=== PATIENT | male | born 1980 | race Caucasian/White ===

== ENCOUNTER 2016-11-04 16:26 | Emergency (ER) | payer MEDICAID ==
[~2016-11-04] VITALS: Ht 165.1 cm; Wt 135.0 kg
[~2016-11-04 16:26] MED LIST: AMLO5TAB2 PO; CLON0.1T PO; GABA800T PO; HYDR-3366 PO; NABU1TAB33 PO; PRED20 PO; TIZA4TAB PO
[2016-11-04 16:28] VITALS: BP 179/107; PULSE 86; RESP 15; TEMP 98.4; O2SAT 98
[2016-11-04] MEDS ORDERED: DEXAMETHASONE SOD PHOS 20 MG/5 ML VIAL IM ONE (19:00)
[2016-11-04] MEDS ORDERED: ACYC800T PO (19:04)
[2016-11-04] MEDS ORDERED: AMOX500T PO (19:04)
[2016-11-04] MEDS ORDERED: PERI0.126 SWISH-SPIT (19:04)
[2016-11-04] MEDS ORDERED: MAGICADU2 SWISH-SWAL (19:04)
--- NOTE | 2016-11-04 19:04 | PD ---
HPI Chief Complaint: Oral / Dental Pain or Problem Time Seen by Provider: 18:52 Travel History International Travel<30 days: No Contact w/Intl Traveler<30days: No Traveled to known affect area: No History of Present Illness HPI 36 year male presents to emergency department for evaluation of ulcerative lesions in his oral mucosa on the right side extending to his lip. States that he noticed some tingling and mild burning in his mouth about 3 days ago. He thought maybe he had thrush so he started swishing with hydrogen peroxide but then started with lemon juice after the hydrogen peroxide oh when crazy in his mouth." Denies a trauma. No fever or chills. States that they are painful especially when eating. Is concerned that his lip has become swollen on the right side. Denies difficulty swallowing. No other symptoms to report. PFSH Past Medical History Autoimmune Disease: No Anxiety: Yes Depression: Yes Cardiovascular Problems: Yes (HTN; HASNT TAKEN HIS BP MEDS YET TODAY) Diabetes: No Diminished Hearing: No Hypertension: Yes Schizophrenia: No Seizures: No Past Surgical History Neurologic Surgery: Yes (C 6-7 FUSION) Tonsillectomy: Yes Social History Alcohol Use: No Tobacco Use: Yes Substance Use: No Allergies-Medications (Allergen,Severity, Reaction): Coded Allergies: No Known Allergies (Verified , 12/19/15) Reported Meds & Prescriptions Reported Meds & Active Scripts Active Magic Mouthwash Adult Liq (Multi-Ingredient Mouthwash/Gargle) 120 Ml Susp 10 Ml SWISH-SWAL ACHS Each 5mL contains: Nystatin 200,000units, Diphenhydramine 4.25mg, Viscous Lidocaine 10mg, Norris syrup 0.8 mL Amoxicillin 500 Mg Tab 500 Mg PO TID 10 Days Acyclovir 800 Mg Tab 800 Mg PO 5 TIMES A DAY 7 Days Peridex Liq (Chlorhexidine Gluconate (Mouth) Liq) 0.12% Soln 15 Ml SWISH-SPIT BID 14 Days Prednisone 20 Mg Tab 20 Mg PO BID 3 Days Clonidine (Clonidine HCl) 0.1 Mg Tab 0.1 Mg PO BID PRN Reported Tizanidine (Tizanidine HCl) 4 Mg Tab 4 Mg PO TID Nabumetone 750 Mg Tab 1,500 Mg PO DAILY [place] (Hydrocodone-Acetaminophen) 10-325 Mg Tab 1 Tab PO Q6H PRN Gabapentin 800 Mg Tab 800 Mg PO TID Amlodipine (Amlodipine Besylate) 5 Mg Tab 5 Mg PO DAILY Review of Systems Except as stated in HPI: all other systems reviewed are Neg Physical Exam Narrative GENERAL: Well-nourished, well-developed male patient, no acute distress SKIN: Focused skin assessment warm/dry. HEAD: Normocephalic. EARS: Bilateral pinnae and external canals appear within normal limits. Bilateral tympanic membranes without erythema, dullness or perforation. EYES: No scleral icterus. No injection or drainage. ENT: Mucosa pink and moist there is erythema along the right mucosa with ulcerative lesions on the anterior inferior lip with mild associated edema. No uvular edema. No uvular, palatal, or tonsillar deviation. Airway patent. Nasal turbinates appear normal without nasal blood, purulent drainage or septal hematoma. NECK: Supple, trachea midline. No JVD or lymphadenopathy. CARDIOVASCULAR: Regular rate and rhythm without murmurs, gallops, or rubs. RESPIRATORY: Breath sounds equal bilaterally. No accessory muscle use. GASTROINTESTINAL: Abdomen soft, non-tender, nondistended. MUSCULOSKELETAL: No cyanosis, or edema. BACK: Nontender without obvious deformity. No CVA tenderness. Data Data Last Documented VS Vital Signs Date Time Temp Pulse Resp B/P (MAP) Pulse Ox O2 Delivery O2 Flow Rate FiO2 11/04/16 16:28 98.4 86 15 179/107 (131) 98 Orders Orders Dexamethasone Inj (Decadron Inj) (11/04/16 19:00) MDM Medical Decision Making Medical Screen Exam Complete: Yes Emergency Medical Condition: Yes Medical Record Reviewed: Yes Differential Diagnosis aCANTHOUS versus oral herpes versus shingles versus mucositis Narrative Course 36-year-old male presents to emergency department for evaluation. Patient does have ulcerative lesions along the right side of his mouth mostly in the buccal space and lower lip. Patient will be started on Peridex oral rinse as well as Magic mouthwash. He'll be given an antiviral as well as an antibiotic. He is encouraged to seek follow-up with a primary care provider and return immediately with any acute worsening of symptoms. Diagnosis Primary Impression: Oral mucositis (ulcerative), unspecified Referrals: Dentist Primary Care Physician Patient Instructions: General Instructions, Oral Mucositis (ED) Additional Instructions: Avoid abrasive and acidic foods Follow-up with a primary care provider Seek dental evaluation Return immediately to the emergency department with any acute worsening of symptoms Med/Other Pt SpecificInfo: Prescription(s) given Scripts Vpegkrbx-Fquyjcfsthegyrj-Rqfhkqzxp Liq (Magic Mouthwash Adult Liq) 120 Ml Susp 10 ML SWISH-SWAL ACHS for Mouth sores, #120 ML 0 Refills Each 5mL contains: Nystatin 200,000units, Diphenhydramine 4.25mg, Viscous Lidocaine 10mg, Norris syrup 0.8 mL Prov: Koki Sanchez 11/04/16 Amoxicillin (Amoxicillin) 500 Mg Tab 500 MG PO TID for Infection for 10 Days, TAB 0 Refills Prov: Koki Sanchez 11/04/16 Acyclovir (Acyclovir) 800 Mg Tab 800 MG PO 5 TIMES A DAY for Mgmt Viral Infection for 7 Days, TAB 0 Refills Prov: Koki Sanchez 11/04/16 Chlorhexidine Gluconate (Mouth) Liq (Peridex Liq) 0.12% Soln 15 ML SWISH-SPIT BID for 14 Days, #420 ML 0 Refills Prov: Koki Sanchez 11/04/16 Disposition: 01 DISCHARGE HOME Condition: Stable Koki Sanchez Nov 04, 2016 19:04
== END 2016-11-04 19:16 | disposition home or self-care (01) ==
LOC: NEPD 16:26
DX: K12.30 Oral mucositis (ulcerative), unspecified (principal); I10 Essential (primary) hypertension; Z72.0 Tobacco use
CPT/HCPCS: 96372; 99284; J1100

== ENCOUNTER 2016-11-19 16:39 | Observation (INO) | payer MEDICAID ==
[~2016-11-19] VITALS: Ht 165.1 cm; Wt 141.0 kg
[~2016-11-19 16:39] MED LIST changes: +ACYC800T PO; +AMOX500T PO; +MAGICADU2 SWISH-SWAL; +PERI0.126 SWISH-SPIT
[2016-11-19 16:47] VITALS: BP 183/111; PULSE 90; RESP 13; TEMP 97.7; O2SAT 97
--- NOTE | 2016-11-19 16:49 | PD ---
Physical Exam Time Seen by Provider: 16:48 Narrative Pt has history of L5S1 herniation and is on chronic pain medication with Lortab and gabapentin. Has been out of his meds for 48 hours. Feels very sick and began having right sided chest pain that does not radiate anywhere. Feels anxious and dizzy and states he is "not doing very well." Data Data Last Documented VS Vital Signs Date Time Temp Pulse Resp B/P (MAP) Pulse Ox O2 Delivery O2 Flow Rate FiO2 11/19/16 17:18 98.3 82 18 161/89 (113) 99 Room Air Orders Orders Electrocardiogram (11/19/16 16:50) Basic Metabolic Panel (Bmp) (11/19/16 16:50) Ckmb (Isoenzyme) Profile (11/19/16 16:50) Complete Blood Count With Diff (11/19/16 16:50) Magnesium (Mg) (11/19/16 16:50) Prothrombin Time / Inr (Pt) (11/19/16 16:50) Act Partial Throm Time (Ptt) (11/19/16 16:50) Troponin I (11/19/16 16:50) Drug Screen, Random Urine (11/19/16 16:50) Chest, Pa & Lat (11/19/16 16:50) Admit Order (Ed Use Only) (11/19/16 19:03) Activity Bed Rest With Brp (11/19/16 19:03) Vital Signs (Adult) Q4H (11/19/16 19:03) Cardiac Rhythm .As Directed (11/19/16 19:03) Notify Dr: Other .PRN (11/19/16 19:03) Notify Parameters (11/19/16 19:03) Resp Oxygen Nasal Cannula (11/19/16 ) Ckmb (Isoenzyme) Profile (11/19/16 19:03) Ckmb (Isoenzyme) Profile (11/19/16 22:03) Troponin I (11/19/16 19:03) Troponin I (11/19/16 22:03) Electrocardiogram (11/19/16 19:03) Electrocardiogram (11/19/16 22:03) ^ Obtain (11/19/16 19:03) Sodium Chloride 0.9% Flush (Ns Flush) (11/19/16 19:15) Sodium Chloride 0.9% Flush (Ns Flush) (11/19/16 21:00) Acetamin-Hydrocod 325-7.5 Mg ([place] 7.5 (11/19/16 19:15) Aspirin (Aspirin) (11/20/16 09:00) Drugless Doctor / Telemetry [place].Q8H (11/19/16 19:03) Labs Laboratory Tests Test 11/19/16 16:40 11/19/16 17:30 Urine Opiates Screen NEG Urine Barbiturates Screen NEG Urine Amphetamines Screen NEG Urine Benzodiazepines Screen NEG Urine Cocaine Screen NEG Urine Cannabinoids Screen NEG White Blood Count 11.2 TH/MM3 Red Blood Count 5.46 MIL/MM3 Hemoglobin 16.3 GM/DL Hematocrit 47.4 % Mean Corpuscular Volume 86.7 FL Mean Corpuscular Hemoglobin 29.9 PG Mean Corpuscular Hemoglobin Concent 34.4 % Red Cell Distribution Width 14.0 % Platelet Count 269 TH/MM3 Mean Platelet Volume 8.3 FL Neutrophils (%) (Auto) 72.6 % Lymphocytes (%) (Auto) 20.8 % Monocytes (%) (Auto) 5.7 % Eosinophils (%) (Auto) 0.5 % Basophils (%) (Auto) 0.4 % Neutrophils # (Auto) 8.1 TH/MM3 Lymphocytes # (Auto) 2.3 TH/MM3 Monocytes # (Auto) 0.6 TH/MM3 Eosinophils # (Auto) 0.1 TH/MM3 Basophils # (Auto) 0.0 TH/MM3 CBC Comment AUTO DIFF Differential Comment AUTO DIFF CONFIRMED Platelet Estimate NORMAL Platelet Morphology Comment NORMAL Red Cell Morphology Comment NORMAL Prothrombin Time 10.7 SEC Prothromb Time International Ratio 1.0 RATIO Activated Partial Thromboplast Time 26.6 SEC Blood Urea Nitrogen 7 MG/DL Creatinine 0.79 MG/DL Random Glucose 115 MG/DL Calcium Level 9.2 MG/DL Magnesium Level 2.3 MG/DL Sodium Level 141 MEQ/L Potassium Level 3.8 MEQ/L Chloride Level 109 MEQ/L Carbon Dioxide Level 24.9 MEQ/L Anion Gap 7 MEQ/L Estimat Glomerular Filtration Rate 111 ML/MIN Total Creatine Kinase 59 U/L Troponin I LESS THAN 0.02 NG/ML [facility] Medical Record Reviewed: Yes Supervised Visit with SUSANNAH: No Condition: Stable Koki Sanchez Nov 19, 2016 16:49
[2016-11-19 17:11] VITALS: BP 161/89; PULSE 81; RESP 18; TEMP 98.3
[2016-11-19 17:18] VITALS: BP 161/89; PULSE 82; RESP 18; TEMP 98.3; O2SAT 99
--- NOTE | 2016-11-19 17:22 | RADRPT ---
EXAM DATE/TIME: 11/19/2016 17:12 [place] COMPARISON: No previous studies available for comparison. INDICATIONS : Chest pain. MEDICAL HISTORY : None. SURGICAL HISTORY : None. ENCOUNTER: Initial ACUITY: 1 day PAIN SCORE: 6/10 LOCATION: Bilateral chest FINDINGS: PA and lateral views of the chest demonstrate the lungs to be symmetrically aerated without evidence of mass, infiltrate or effusion. The cardiomediastinal contours are unremarkable. Lower cervical fix ation hardware. Osseous structures are intact. CONCLUSION: 1. No acute cardiopulmonary disease. Colt Sanford MD on November 19, 2016 at 17:20 Board Certified Radiologist. This report was verified electronically.
[2016-11-19 18:00] LABS: AUTOMATED NEUTROPHIL # 8.1 TH/MM3 (1.8-7.7); BASOPHIL % 0.4 % (0.0-2.0); EOSINOPHIL # 0.1 TH/MM3 (0-0.4); EOSINOPHIL % 0.5 % (0.0-4.0); HEMATOCRIT 47.4 % (39.0-51.0); LYMPH % 20.8 % (9.0-44.0); LYMPHOCYTE # 2.3 TH/MM3 (1.0-4.8); MEAN CELL VOLUME 86.7 FL (80.0-100.0); MEAN CORPUSCULAR HEMOGLOBIN 29.9 PG (27.0-34.0); MEAN CORPUSCULAR HGB CONC 34.4 % (32.0-36.0); MONO % 5.7 % (0.0-8.0); NEUT % 72.6 % (16.0-70.0); PLATELET COUNT 269 TH/MM3 (150-450); RED BLOOD COUNT 5.46 MIL/MM3 (4.50-5.90); WHITE BLOOD COUNT 11.2 TH/MM3 (4.0-11.0)
[2016-11-19 18:11] LABS: APTT (PATIENT) 26.6 SEC (24.3-30.1); PROTHROMBIN TIME - PATIENT 10.7 SEC (9.8-11.6)
[2016-11-19 18:13] LABS: HEMO FLAGS AUTO DIFF
[2016-11-19 18:25] LABS: ANION GAP 7 MEQ/L (5-15); BICARBONATE 24.9 MEQ/L (21.0-32.0); BLOOD UREA NITROGEN 7 MG/DL (7-18); CHLORIDE 109 MEQ/L (98-107); GLOMERULAR FILTRATION RATE 111 ML/MIN (>89); MAGNESIUM 2.3 MG/DL (1.5-2.5); POTASSIUM 3.8 MEQ/L (3.5-5.1); SODIUM (NA) 141 MEQ/L (136-145)
[2016-11-19 18:31] LABS: CREATINE KINASE 59 U/L (39-308)
[2016-11-19 18:48] LABS: PLATELET ESTIMATE SMEAR NORMAL (NORMAL); PLATELET MORPHOLOGY NORMAL (NORMAL); SCAN/DIFF AUTO DIFF CONFIRMED
--- NOTE | 2016-11-19 19:10 | PD ---
HPI Chief Complaint: Chest Pain Time Seen by Provider: 17:13 Travel History International Travel<30 days: No Contact w/Intl Traveler<30days: No Traveled to known affect area: No History of Present Illness HPI 36-year-old male with history of smoking, high cholesterol, chronic hypertension , chronic neck pain, presents to the ER today because he states that he had ran out of his pain medications for 2 days, and has been having one day of substernal chest pains which she currently rates at a 4 out of 10. He has been nauseous, intermittently vomiting. He denies any fevers, shortness of breath, or any other symptoms. He does not know any exacerbating or alleviating factors. Modifying Factors: None Associated Signs & Symptoms: Chest pains Risk Factors: Smoking, hypertension, high cholesterol PFSH Past Medical History Autoimmune Disease: No Anxiety: Yes Depression: Yes Cardiovascular Problems: Yes (HTN) High Cholesterol: Yes Diabetes: No Diminished Hearing: No Hypertension: Yes Schizophrenia: No Seizures: No Tetanus Vaccination: > 5 Years Influenza Vaccination: No Past Surgical History Neurologic Surgery: Yes (C 6-7 FUSION) Tonsillectomy: Yes Social History Alcohol Use: No Tobacco Use: Yes Substance Use: No Allergies-Medications (Allergen,Severity, Reaction): Coded Allergies: No Known Allergies (Verified , 11/19/16) Reported Meds & Prescriptions Reported Meds & Active Scripts Active Reported Nabumetone 750 Mg Tab 1,500 Mg PO DAILY [place] (Hydrocodone-Acetaminophen) 10-325 Mg Tab 1 Tab PO Q6H PRN Gabapentin 800 Mg Tab 800 Mg PO TID Amlodipine (Amlodipine Besylate) 5 Mg Tab 5 Mg PO DAILY Review of Systems Except as stated in HPI: all other systems reviewed are Neg Physical Exam Narrative GENERAL: Well-developed obese young white male patient currently in mild distress. Awake and oriented 3. SKIN: Focused skin assessment warm/dry. HEAD: Atraumatic. Normocephalic. EYES: Pupils equal and round. No scleral icterus. No injection or drainage. ENT: No nasal bleeding or discharge. Mucous membranes pink and moist. NECK: Trachea midline. No JVD. Supple. CARDIOVASCULAR: Regular rate and rhythm. No murmur appreciated. Pulses are present and equal bilaterally. RESPIRATORY: No accessory muscle use. Clear to auscultation. Breath sounds equal bilaterally. GASTROINTESTINAL: Abdomen soft, non-tender, nondistended. Hepatic and splenic margins not palpable. MUSCULOSKELETAL: No obvious deformities. No clubbing. No cyanosis. No edema. NEUROLOGICAL: Awake and alert. No obvious cranial nerve deficits. Motor grossly within normal limits. Normal speech. PSYCHIATRIC: Appropriate mood and affect; insight and judgment normal. Data Data Last Documented VS Vital Signs Date Time Temp Pulse Resp B/P (MAP) Pulse Ox O2 Delivery O2 Flow Rate FiO2 11/19/16 17:18 98.3 82 18 161/89 (113) 99 Room Air Orders Orders Electrocardiogram (11/19/16 16:50) Basic Metabolic Panel (Bmp) (11/19/16 16:50) Ckmb (Isoenzyme) Profile (11/19/16 16:50) Complete Blood Count With Diff (11/19/16 16:50) Magnesium (Mg) (11/19/16 16:50) Prothrombin Time / Inr (Pt) (11/19/16 16:50) Act Partial Throm Time (Ptt) (11/19/16 16:50) Troponin I (11/19/16 16:50) Drug Screen, Random Urine (11/19/16 16:50) Chest, Pa & Lat (11/19/16 16:50) Electrocardiogram (11/19/16 ) Admit Order (Ed Use Only) (11/19/16 19:03) Activity Bed Rest With Brp (11/19/16 19:03) Vital Signs (Adult) Q4H (11/19/16 19:03) Cardiac Rhythm .As Directed (11/19/16 19:03) Notify Dr: Other .PRN (11/19/16 19:03) Notify Parameters (11/19/16 19:03) Resp Oxygen Nasal Cannula (11/19/16 ) Diet Heart Healthy (11/20/16 Breakfast) Ckmb (Isoenzyme) Profile (11/19/16 19:03) Ckmb (Isoenzyme) Profile (11/19/16 22:03) Troponin I (11/19/16 19:03) Troponin I (11/19/16 22:03) Electrocardiogram (11/19/16 19:03) Electrocardiogram (11/19/16 22:03) ^ Obtain (11/19/16 19:03) Sodium Chloride 0.9% Flush (Ns Flush) (10/2/17 19:15) Sodium Chloride 0.9% Flush (Ns Flush) (11/19/16 21:00) Acetamin-Hydrocod 325-7.5 Mg ([place] 7.5 (11/19/16 19:15) Aspirin (Aspirin) (11/20/16 09:00) Landfill Grader / Telemetry [place].Q8H (11/19/16 19:03) Labs Laboratory Tests Test 11/19/16 16:40 11/19/16 17:30 White Blood Count 11.2 TH/MM3 Red Blood Count 5.46 MIL/MM3 Hemoglobin 16.3 GM/DL Hematocrit 47.4 % Mean Corpuscular Volume 86.7 FL Mean Corpuscular Hemoglobin 29.9 PG Mean Corpuscular Hemoglobin Concent 34.4 % Red Cell Distribution Width 14.0 % Platelet Count 269 TH/MM3 Mean Platelet Volume 8.3 FL Neutrophils (%) (Auto) 72.6 % Lymphocytes (%) (Auto) 20.8 % Monocytes (%) (Auto) 5.7 % Eosinophils (%) (Auto) 0.5 % Basophils (%) (Auto) 0.4 % Neutrophils # (Auto) 8.1 TH/MM3 Lymphocytes # (Auto) 2.3 TH/MM3 Monocytes # (Auto) 0.6 TH/MM3 Eosinophils # (Auto) 0.1 TH/MM3 Basophils # (Auto) 0.0 TH/MM3 CBC Comment AUTO DIFF Differential Comment AUTO DIFF CONFIRMED Platelet Estimate NORMAL Platelet Morphology Comment NORMAL Red Cell Morphology Comment NORMAL Prothrombin Time 10.7 SEC Prothromb Time International Ratio 1.0 RATIO Activated Partial Thromboplast Time 26.6 SEC Blood Urea Nitrogen 7 MG/DL Creatinine 0.79 MG/DL Random Glucose 115 MG/DL Calcium Level 9.2 MG/DL Magnesium Level 2.3 MG/DL Sodium Level 141 MEQ/L Potassium Level 3.8 MEQ/L Chloride Level 109 MEQ/L Carbon Dioxide Level 24.9 MEQ/L Anion Gap 7 MEQ/L Estimat Glomerular Filtration Rate 111 ML/MIN Total Creatine Kinase 59 U/L Troponin I LESS THAN 0.02 NG/ML MDM Medical Decision Making Medical Screen Exam Complete: Yes Emergency Medical Condition: Yes Medical Record Reviewed: Yes Interpretation(s) EKG shows NSR with an incomplete right bundle branch block pattern, no ST elevation or depression, and no arrhythmias. No significant T-wave inversions. Laboratory Tests Test 11/19/16 16:40 11/19/16 17:30 White Blood Count 11.2 TH/MM3 (4.0-11.0) Neutrophils (%) (Auto) 72.6 % (16.0-70.0) Neutrophils # (Auto) 8.1 TH/MM3 (1.8-7.7) Random Glucose 115 MG/DL (74-106) Chloride Level 109 MEQ/L (98-107) Troponin I LESS THAN 0.02 NG/ML Differential Diagnosis Chest pains: ACS versus anxiety attack versus pneumonia versus costochondritis Narrative Course Vital signs are stable. Chest x-ray did not show any signs of acute processes. Cardiac enzymes are negative. EKG did not show significant dysrhythmias or ST elevations or depressions. At this point, considering the patient's risk factors, my plan would be to admit the patient for further evaluation of chest pain in the chest pain center. Patient was given aspirin in the ER. Diagnosis Primary Impression: Chest pain Admitting Information Admitting Physician Requests: Admit Ron Barry MD Nov 19, 2016 19:10
[2016-11-19] MEDS ORDERED: SODIUM CHLORIDE 0.9% FLUSH 10 ML FLUSH IV FLUSH PRN (19:15)
[2016-11-19 19:27] VITALS: BP 154/91; PULSE 78; RESP 18
[2016-11-19] MEDS: ACETAMINOPHEN/HYDROcodone 325 MG/7.5 MG TAB PO PRN ×2 (19:33→23:43)
[2016-11-19 20:07] VITALS: BP 150/89; PULSE 79; RESP 20; TEMP 97.6; O2SAT 96
[2016-11-19 20:42] LABS: CREATINE KINASE 63 U/L (39-308)
[2016-11-19] MEDS ORDERED: SODIUM CHLORIDE 0.9% FLUSH 10 ML FLUSH IV FLUSH SCH (21:00)
[2016-11-19 21:47] VITALS: PULSE 81
[2016-11-19 23:49] LABS: CREATINE KINASE 47 U/L (39-308)
[2016-11-20 00:05] VITALS: PULSE 62
[2016-11-20 00:11] VITALS: BP 158/104; PULSE 62; RESP 20; TEMP 98.1; O2SAT 98
--- NOTE | 2016-11-20 08:12 | EKG ---
Date Performed: 11/19/2016 Time Performed: 19:18:48 PTAGE: 36 years EKG: Sinus rhythm INCOMPLETE RIGHT BUNDLE BRANCH BLOCK BORDERLINE ECG Compared to prior tracing no significant change PREVIOUS TRACING : 11/19/2016 17.22 DOCTOR: Kassandra Heller Interpretating Date/Time 11/20/2016 08:10:38
--- NOTE | 2016-11-20 08:12 | EKG ---
Date Performed: 11/19/2016 Time Performed: 17:22:35 PTAGE: 36 years EKG: Sinus rhythm INCOMPLETE RIGHT BUNDLE BRANCH BLOCK BORDERLINE ECG Compared to prior tracing no significant change PREVIOUS TRACING : 11/16/2010 23.11 DOCTOR: Kassandra Heller Interpretating Date/Time 11/20/2016 08:10:30
[2016-11-20] MEDS ORDERED: ASPIRIN 325 MG TAB PO SCH (09:00)
--- NOTE | 2016-11-20 16:40 | EKG ---
Date Performed: 11/19/2016 Time Performed: 22:15:05 PTAGE: 36 years EKG: Sinus rhythm INCOMPLETE RIGHT BUNDLE BRANCH BLOCK NONSPECIFIC T-WAVE ABNORMALITY Compared to prior tracing no sig nificant change BORDERLINE ECG PREVIOUS TRACING : 11/19/2016 19.18 DOCTOR: Kassandra Heller Interpretating Date/Time 11/20/2016 16:37:15
== END 2016-11-20 02:48 | disposition left against medical advice (07) ==
LOC: NEPE 16:39 → NEDA 19:07 → NEPGCP 20:02
PROVIDERS: ADMIT Internal Medicine Cardiovascular Disease; ATTEND Internal Medicine Cardiovascular Disease
DX: R07.89 Other chest pain (principal); R42 Dizziness and giddiness; R11.2 Nausea with vomiting, unspecified; I45.10 Unspecified right bundle-branch block; I10 Essential (primary) hypertension; E78.00 Pure hypercholesterolemia, unspecified; M51.27 Other intervertebral disc displacement, lumbosacral region; M54.2 Cervicalgia; G89.29 Other chronic pain; F41.9 Anxiety disorder, unspecified; F32.9 Major depressive disorder, single episode, unspecified; Z87.891 Personal history of nicotine dependence; Z79.899 Other long term (current) drug therapy
CPT/HCPCS: 71020; 80048; 80307; 82550; 83735; 84484; 85025; 85610; 85730; 93005; 99285; G0378